=== PATIENT | female | born 1975 | race Caucasian/White ===

== ENCOUNTER 2019-07-14 09:26 | Emergency (ER) | payer OTHER, SELFPAY ==
--- NOTE | 2019-07-14 09:29 | DI.RAD.S_ITS ---
PROCEDURE: XR ACUTE ABDOMEN SERIES INDICATIONS: Abdominal pain TECHNIQUE: One view chest and two views of the abdomen were acquired. COMPARISON: None. FINDINGS: Surgical changes and devices: Intrauterine device is noted in place. Chest: Lungs are clear. Heart size is normal. No pleural effusions. No pneumoperitoneum. Abdomen: Fecal stasis throughout the colon is seen. No suspicious calcifications. Visualized solid organ contours appear normal. Bones: No suspicious bony lesions. IMPRESSION: No evidence of bowel obstruction. No gross free air. Mild constipation. No acute cardiopulmonary pathology. Dictated by: Michael Betts M.D. on 07/14/2019 at 9:59 Approved by: Michael Betts M.D. on 07/14/2019 at 9:59
[2019-07-14 09:30] VITALS: BP 156/101; PULSE 97; RESP 18; TEMP 36.9; O2SAT 100
--- NOTE | 2019-07-14 09:46 | ED.GENADULT ---
HPI - General Adult General Chief complaint: Diabetic Problem Stated complaint: Blood sugar of 462, nausea, stomach pain Time Seen by Provider: 07/14/19 09:28 Source: patient Mode of arrival: Ambulatory Limitations: no limitations History of Present Illness HPI narrative: 43-year-old female nonsmoker with newly diagnosed diabetes presents with continued elevated blood sugars, nausea and generalized abdominal discomfort. About 2 weeks ago she was treated for bronchitis and placed on steroids and in the aftermath had increasing thirst, hunger and frequent urination. As her symptoms worsened and she developed increasing nausea and abdominal discomfort she sought treatment at an outside facility and was diagnosed with diabetes. Additionally her sugars when the 600s but were down in the 400s before being discharged on a prescription of metformin 500 b.i.d.. She presents to us today with persistent symptoms complaining of blurred vision additionally. [place] is yet to follow up Onset (ago): week(s) Severity: moderate Associated symptoms: nausea/vomiting Treatments prior to arrival: none Related Data Allergies Allergy/AdvReac Type Severity Reaction Status Date / Time doxycycline Allergy Verified 07/14/19 10:28 Review of Systems Constitutional Constitutional: Denies chills, Reports fatigue, Denies fever(s), Denies frequent falls, Denies lethargy and Reports weakness Eyes Eyes: Reports change in vision, Denies eye discharge, Denies irritation and Denies loss of vision ENT Ears, Nose, Mouth, and Throat: Denies change in voice, Denies dizziness, Denies neck pain, Denies sore throat and Denies throat swelling Cardiovascular Cardiovascular: Denies chest pain, Denies irregular heart rhythm, Denies lightheadedness, Denies palpitations, Denies dyspnea, Denies dyspnea on exertion and Denies orthopnea Respiratory Respiratory: Denies cough, Denies dyspnea, Denies dyspnea on exertion and Denies wheezing Gastrointestinal Gastrointestinal: Reports abdominal pain, Denies change in bowel habits, Denies diarrhea, Reports nausea and Denies vomiting Genitourinary Genitourinary: Denies hematuria, Denies flank pain, Denies urinary incontinence and Denies urinary urgency Musculoskeletal Musculoskeletal: Denies back pain, Reports muscle weakness, Denies neck pain, Denies numbness and Denies tingling Integumentary/Breasts Skin/Breast: Denies pruritus, Denies erythema, Denies rash and Denies wounds Neurologic Neurologic: Denies behavioral changes, Denies confusion, Denies dizziness, Denies frequent falls, Denies loss of vision, Denies numbness, Denies tingling and Reports weakness Psychiatric Psychiatric: Denies anxiety, Denies behavioral changes, Denies confusion, Denies depression, Denies homicidal ideation and Denies suicidal ideation Endocrine Endocrine: Reports fatigue, Denies flushing and Denies palpitations Hematologic/Lymphatic Hematologic/Lymphatic: Denies easy bruising Allergic/Immunologic Allergic/Immunologic: Denies urticaria, Denies throat swelling and Denies wheezing Patient History Social History Smoking Status: Never smoker alcohol intake frequency: 0-2 drinks per day Substance Use Type: does not use Exam Narrative Exam Narrative: GENERAL: [43] year old patient appears stated age. Well-nourished, well-developed patient, in mild distress. HEAD: Atraumatic. Normocephalic. EYES: Pupils equal round and reactive. Extraocular motions intact. No scleral icterus. No injection or drainage. Pressures checked with Tonopen and OS 20, OD 18. VIsual acuity noted on nurses chart. When within 3 feet her vision is normal ENT: Nose without bleeding, purulent drainage. Throat without erythema, tonsillar hypertrophy or exudate. Airway patent. NECK: Trachea midline. Non tender CARDIOVASCULAR: Regular rate and rhythm without murmurs, gallops, or rubs. RESPIRATORY: Clear to auscultation. Breath sounds equal bilaterally. No wheezes, rales, or rhonchi. GASTROINTESTINAL: Abdomen soft, non-tender, nondistended. EXTREMITIES: No edema or joint tenderness. BACK: Nontender without deformity or crepitance. No flank tenderness. NEURO: AOx3. SKIN: No rash or erythema of visible areas Initial Vital Signs Initial Vital Signs: Vital Signs Temperature 98.5 F 07/14/19 09:30 Pulse Rate 97 H 07/14/19 09:30 Respiratory Rate 18 07/14/19 09:30 Blood Pressure 156/101 H 07/14/19 09:30 Pulse Oximetry 100 07/14/19 09:30 Course Orders Ordered: ED Orders 07/14/19 09:58 Venous Blood Gas Stat 07/14/19 10:00 Blood Culture Stat Complete Blood Count AUTO DIFF Stat Comprehensive Metabolic Panel Stat Ketones (Beta-Hydroxybutyrate) Stat Lactate (Lactic Acid) Stat Procalcitonin Stat 07/14/19 12:43 Basic Metabolic Panel Stat 07/14/19 14:16 CT head/brain wo con Stat Discontinued Medications Sodium Chloride (Normal Saline 0.9%) 1,000 mls @ 1,000 mls/hr IV BOLUS ONE Stop: 07/14/19 10:27 Last Infusion: 07/14/19 11:41 Dose: 0 mls/hr Documented by: Admin: 07/14/19 10:29 Dose: 1,000 mls/hr Documented by: BTONER Sodium Chloride (Normal Saline 0.9%) 1,000 mls @ 1,000 mls/hr IV BOLUS ONE Stop: 07/14/19 11:47 Last Infusion: 07/14/19 14:16 Dose: 0 mls/hr Documented by: Admin: 07/14/19 11:42 Dose: 1,000 mls/hr Documented by: BTONER Ondansetron HCl (Zofran) 4 mg IV NOW ONE Stop: 07/14/19 09:29 Last Admin: 07/14/19 10:29 Dose: 4 mg Documented by: BTONER Proparacaine HCl (Parcaine 0.5% Ophth Stacia) 1 drops EYE-BOTH NOW ONE Stop: 07/14/19 14:55 Last Admin: 07/14/19 15:10 Dose: 1 drop Documented by: BTONER Consultations Consultation #1: discussion with ophtho. Findings very consistent with lens abnormality secondary to increased blood sugar, will eventually need ophtho follow up, but no emergent follow up needed Vital Signs Vital signs: Vital Signs - 8 hr 07/14/19 12:00 07/14/19 13:00 07/14/19 15:00 Pulse Rate 69 67 72 Respiratory Rate 16 17 19 Blood Pressure [Right Arm] 109/68 114/73 115/64 Pulse Oximetry 100 100 98 Medical Decision Making Lab Data Result diagrams: 07/14/19 10:00 07/14/19 12:43 Labs: Lab Results 07/14/19 07/14/19 07/14/19 Range/Units 09:58 10:00 10:00 WBC 10.6 (4.5-11.0) X10^3/uL RBC 4.83 (4.0-5.2) X10^6/uL Hgb 14.0 (12.0-16.0) g/dL Hct 40.8 (36-46) % MCV 84.5 (80-100) fL MCH 28.9 (26-34) PG MCHC 34.2 (30-36) % RDW 12.9 (11.6-14.8) % Plt Count 307 (150-400) X10^3/uL Neut % (Auto) 52.2 (50-75) % Lymph % (Auto) 40.2 H (25-40) % [place] % (Auto) 5.6 (3-14) % Eos % (Auto) 1.0 L (2-4) % Baso % (Auto) 1.0 (0-2) % Neut # (Auto) 5500 (5704-6115) /uL Lymph # (Auto) 4300 (1639-1431) /uL [place] # (Auto) 600 (0-900) /uL Eos # (Auto) 100 (0-450) /uL Baso # (Auto) 100 (0-100) /uL VBG pH 7.41 (7.33-7.43) VBG pCO2 38.6 L (45-50) mmHg VBG pO2 40 (35-45) mmHg VBG HCO3 24 (23-28) mmol/L VBG Total CO2 25 (24-29) mmol/L VBG O2 Saturation 76 H (70-75) % VBG Base Excess -1.0 L (0-4) mmol/L Sodium (137-145) mmol/L Potassium (3.4-5.1) mmol/L Chloride (98-107) mmol/L Carbon Dioxide (22-32) mmol/L BUN (7-17) mg/dL Creatinine (0.52-1.04) mg/dL Estimated GFR (>60) mL/min BUN/Creatinine Ratio (6-22) Glucose (70-100) mg/dL Lactate (0.7-2.1) mmol/L Calcium (8.4-10.2) mg/dL Total Bilirubin (0.2-1.3) mg/dL AST (14-36) IU/L ALT (<35) IU/L Alkaline Phosphatase (38-126) U/L Total Protein (6.3-8.2) g/dL Albumin (3.5-5.0) g/dL Globulin (1.7-4.1) g/dL Albumin/Globulin Ratio (1.0-2.8) Procalcitonin < 0.05 (<0.5) ng/mL Ketones (<0.27) mmol/L 07/14/19 07/14/19 07/14/19 Range/Units 10:00 10:00 12:43 WBC (4.5-11.0) X10^3/uL RBC (4.0-5.2) X10^6/uL Hgb (12.0-16.0) g/dL Hct (36-46) % MCV (80-100) fL MCH (26-34) PG MCHC (30-36) % RDW (11.6-14.8) % Plt Count (150-400) X10^3/uL Neut % (Auto) (50-75) % Lymph % (Auto) (25-40) % [place] % (Auto) (3-14) % Eos % (Auto) (2-4) % Baso % (Auto) (0-2) % Neut # (Auto) (5834-8062) /uL Lymph # (Auto) (9315-7539) /uL [place] # (Auto) (0-900) /uL Eos # (Auto) (0-450) /uL Baso # (Auto) (0-100) /uL VBG pH (7.33-7.43) VBG pCO2 (45-50) mmHg VBG pO2 (35-45) mmHg VBG HCO3 (23-28) mmol/L VBG Total CO2 (24-29) mmol/L VBG O2 Saturation (70-75) % VBG Base Excess (0-4) mmol/L Sodium 133 L 132 L (137-145) mmol/L Potassium 3.6 3.9 (3.4-5.1) mmol/L Chloride 95 L 99 (98-107) mmol/L Carbon Dioxide 23 24 (22-32) mmol/L BUN 21 H 18 H (7-17) mg/dL Creatinine 0.71 0.59 (0.52-1.04) mg/dL Estimated GFR > 60.0 > 60.0 (>60) mL/min BUN/Creatinine Ratio 29.6 H 30.5 H (6-22) Glucose 367 H 309 H (70-100) mg/dL Lactate 1.1 (0.7-2.1) mmol/L Calcium 9.1 8.1 L (8.4-10.2) mg/dL Total Bilirubin 0.8 (0.2-1.3) mg/dL AST 36 (14-36) IU/L ALT 41 H (<35) IU/L Alkaline Phosphatase 143 H (38-126) U/L Total Protein 7.8 (6.3-8.2) g/dL Albumin 4.4 (3.5-5.0) g/dL Globulin 3.4 (1.7-4.1) g/dL Albumin/Globulin Ratio 1.3 (1.0-2.8) Procalcitonin (<0.5) ng/mL Ketones 1.69 H (<0.27) mmol/L Point of Care Testing Glucose POC 298 Urine Dip Bedside Urine Glucose 1000 mg/dl Bedside Urine Bilirubin - Negative Bedside Urine Ketone +++ 80 Urine Specific [place] 1.020 Bedside Urine Occult Blood + Bedside Urine pH 6.0 Bedside Urine Protein +/- 15 Bedside Urine Urobilinogen +/- 1mg Bedside Urine Nitrite - Negative Bedside Urine Leukocytes - Negative Esterase Point of care testing: Point of Care Testing Glucose POC 298 Urine Dip Bedside Urine Glucose 1000 mg/dl Bedside Urine Bilirubin - Negative Bedside Urine Ketone +++ 80 Urine Specific [place] 1.020 Bedside Urine Occult Blood + Bedside Urine pH 6.0 Bedside Urine Protein +/- 15 Bedside Urine Urobilinogen +/- 1mg Bedside Urine Nitrite - Negative Bedside Urine Leukocytes - Negative Esterase Imaging Data CT scan - head: Radiologist's Impression: [place] [address] CT Scan Report Signed Patient: Rina Guardado RMR#: [id number] : 1975Acct:[id number] Age/Sex: 43 / FDate of Service: 07/14/19 Loc: ED Accession Number: [id number] Procedure: CT head/brain wo con Ordering Provider: Velasquez Corona D.O. PROCEDURE: CT HEAD/BRAIN WO CON INDICATIONS: vision change x4 days TECHNIQUE: Noncontrast 4.5 mm thick angled axial sections acquired from the foramen magnum to the vertex, with coronal and sagittal reformats. For radiation dose reduction, the following was used: automated exposure control, adjustment of mA and/or kV according to patient size. COMPARISON: None. FINDINGS: Image quality: Excellent. CSF spaces: Basal cisterns are patent. No extra-axial fluid collections. Ventricles are normal in size and shape. Brain: No midline shift. No intracranial masses or hemorrhage. Kaminski-white matter interface is normal. Skull and face: Calvarium and visualized facial bones are intact, without suspicious lesions. Sinuses: Visualized sinuses and mastoids are clear. IMPRESSION: Normal noncontrast head CT. If it would be helpful for clinical management decision making, please consider a dedicated brain MRI for further evaluation (assuming that there is no contraindication). Dictated by: Cheng Vaughn M.D. on 07/14/2019 at 13:44 Approved by: Cheng Vaughn M.D. 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 Diabetes mellitus complication status: with ophthalmic complications Diabetes mellitus complication detail: with other ophthalmic complication Qualified Code(s): E11.39 - Type 2 diabetes mellitus with other diabetic ophthalmic complication Discharge Date/Time: 07/14/19 15:35 Instructions: DI for Diabetes Type 1 -- Child Activity Restrictions/Additional Instructions: *You have been diagnosed with [type 2 diabetes and temporary ophthalmologic complications] *What to do: *Take medications as directed: Please take an extra Metformin as part of your morning dose (1000mg) *Follow up with your primary care provider in 2-3 days, call for an appointment. Let them know you were seen in the Emergency Department and that we ask that you be seen in follow up *Return to ER if you should have any new, worsening or concerning symptoms Referrals: Kal Espinoza MD [Physician] - Miscellaneous,MD Marvin [Primary Care Provider] - Stand Alone Forms: Work Release Note
[2019-07-14 10:14] LABS: Add Manual Diff / Slide Review NO; Basophils Absolute Auto 100 /uL (0-100); Eosinophils Absolute Auto 100 /uL (0-450); Hematocrit 40.8 % (36-46); Lymphocytes Absolute Auto 4300 /uL (1100-4500); Lymphocytes Percent Auto 40.2 % (25-40); Mean Corpuscular HGB Conc 34.2 % (30-36); Mean Corpuscular Hemoglobin 28.9 PG (26-34); Mean Corpuscular Volume 84.5 fL (80-100); Monocytes Absolute Auto 600 /uL (0-900); Monocytes Percent Auto 5.6 % (3-14); Neutrophils Absolute Auto 5500 /uL (1500-7000); Neutrophils Percent Auto 52.2 % (50-75); Platelet Count 307 X10^3/uL (150-400); Red Blood Cell Count 4.83 X10^6/uL (4.0-5.2); Red Cell Distribution Width 12.9 % (11.6-14.8); White Blood Cell Count 10.6 X10^3/uL (4.5-11.0)
[2019-07-14 10:14] LABS: HCO3 VBG 24 mmol/L (23-28); Oxygen Saturation VBG 76 % (70-75); PCO2 VBG 38.6 mmHg (45-50); PO2 VBG 40 mmHg (35-45); Total CO2 VBG 25 mmol/L (24-29); pH VBG 7.41 (7.33-7.43)
[2019-07-14 10:28] LABS: Alanine Aminotransferase 41 IU/L (<35); Albumin 4.4 g/dL (3.5-5.0); Albumin Globulin Ratio 1.3 (1.0-2.8); Alkaline Phosphatase 143 U/L (38-126); Aspartate Aminotransferase 36 IU/L (14-36); BUN Creatinine Ratio 29.6 (6-22); Bilirubin Total 0.8 mg/dL (0.2-1.3); Blood Urea Nitrogen 21 mg/dL (7-17); Calcium 9.1 mg/dL (8.4-10.2); Carbon Dioxide 23 mmol/L (22-32); Chloride 95 mmol/L (98-107); Estimated Glomerular Filt Rate > 60.0 mL/min (>60); Globulin 3.4 g/dL (1.7-4.1); Glucose 367 mg/dL (70-100); Potassium 3.6 mmol/L (3.4-5.1); Sodium 133 mmol/L (137-145); Total Protein 7.8 g/dL (6.3-8.2)
[2019-07-14] MEDS: SODIUM CHLORIDE 0.9% 1,000 ML 1000 ML IV ×2 (10:29→11:42)
[2019-07-14] MEDS: ONDANSETRON 4 MG/2 ML INJ IV (10:29)
[2019-07-14 10:36] LABS: HEMOLYSIS 18 (0-50); Ketones (Beta-Hydroxybutyrate) 1.69 mmol/L (<0.27)
[2019-07-14 10:37] LABS: Lactate (Lactic Acid) 1.1 mmol/L (0.7-2.1)
[2019-07-14 10:51] LABS: Procalcitonin < 0.05 ng/mL (<0.5)
--- NOTE | 2019-07-14 11:42 | PC.NURSE ---
pt states nausea is better, but vision is still blurry.
[2019-07-14 12:00] VITALS: BP 109/68; PULSE 69; RESP 16; O2SAT 100
[2019-07-14 13:00] VITALS: BP 114/73; PULSE 67; RESP 17; O2SAT 100
[2019-07-14 13:01] LABS: BUN Creatinine Ratio 30.5 (6-22); Blood Urea Nitrogen 18 mg/dL (7-17); Calcium 8.1 mg/dL (8.4-10.2); Carbon Dioxide 24 mmol/L (22-32); Chloride 99 mmol/L (98-107); Estimated Glomerular Filt Rate > 60.0 mL/min (>60); Glucose 309 mg/dL (70-100); HEMOLYSIS < 15 (0-50); Potassium 3.9 mmol/L (3.4-5.1); Sodium 132 mmol/L (137-145)
--- NOTE | 2019-07-14 14:16 | DI.CT.S_ITS ---
PROCEDURE: CT HEAD/BRAIN WO CON INDICATIONS: vision change x4 days TECHNIQUE: Noncontrast 4.5 mm thick angled axial sections acquired from the foramen magnum to the vertex, with coronal and sagittal reformats. For radiation dose reduction, the following was used: automated exposure control, adjustment of mA and/or kV according to patient size. COMPARISON: None. FINDINGS: Image quality: Excellent. CSF spaces: Basal cisterns are patent. No extra-axial fluid collections. Ventricles are normal in size and shape. Brain: No midline shift. No intracranial masses or hemorrhage. Kaminski-white matter interface is normal. Skull and face: Calvarium and visualized facial bones are intact, without suspicious lesions. Sinuses: Visualized sinuses and mastoids are clear. IMPRESSION: Normal noncontrast head CT. If it would be helpful for clinical management decision making, please consider a dedicated brain MRI for further evaluation (assuming that there is no contraindication). Dictated by: Cheng Vaughn M.D. on 07/14/2019 at 13:44 Approved by: Cheng Vaughn M.D. on 07/14/2019 at 13:45
[2019-07-14 15:00] VITALS: BP 115/64; PULSE 72; RESP 19; O2SAT 98
[2019-07-14] MEDS: PROPARACAINE 0.5% OPHTH SOL 1 DROPS EYE-BOTH (15:10)
== END 2019-07-14 15:35 | disposition home or self-care (01) ==
PROVIDERS: Emergency Provider Emergency Medicine
DX: E11.39 Type 2 diabetes mellitus with other diabetic ophthalmic complication (principal); E11.65 Type 2 diabetes mellitus with hyperglycemia; R11.2 Nausea with vomiting, unspecified; R10.9 Unspecified abdominal pain
CPT/HCPCS: 36415; 70450; 74022; 80048; 80053; 81003; 82009; 82805; 82962; 83605; 84145; 85025; 87040; 93005; 93010; 96361; 96374; 99284; 99285; J2405

== ENCOUNTER → 2019-08-07 09:47 | Outpatient (CLI) | payer OTHER, SELFPAY ==
[2019-08-08 10:09] LABS: COVID19 Sendout Not Detected (Not Detected)
== END ==
PROVIDERS: Visit Provider Physician Assistant
DX: Z03.818 Encounter for observation for suspected exposure to other biological agents ruled out (principal)
CPT/HCPCS: 87635

== ENCOUNTER 2020-09-19 11:44 | Emergency (ER) | payer OTHER, SELFPAY ==
[2020-09-19 11:50] VITALS: BP 127/86; PULSE 85; RESP 18; TEMP 36.5; O2SAT 100; BMI 36.6
[2020-09-19 12:24] LABS: COVID19 -Nasal RAPID POSITIVE (Negative)
[2020-09-19 12:49] VITALS: PULSE 85; RESP 20; O2SAT 96
--- NOTE | 2020-09-19 12:56 | ED.URI ---
HPI - URI/Sore Throat General Chief Complaint: Upper Respiratory Symptoms Stated Complaint: Sore Throat/Cough,No Taste or Smell, Possible Expo Time Seen by Provider: 09/19/20 12:49 Source: patient Mode of arrival: Ambulatory Limitations: no limitations History of Present Illness HPI Narrative: Patient is a 44-year-old female with no past medical history presenting today with 5 days of generalized weakness fever and jaw exhaustion. She has also had cough and sore throat. She did receive her COVID vaccine [employer] in June of 2020. Her test came back and she is COVID positive. Related Data Allergies Allergy/AdvReac Type Severity Reaction Status Date / Time doxycycline Allergy Verified 08/07/19 09:45 Review of Systems Review of Systems ROS Unobtainable: All systems reviewed & are unremarkable except as noted in HPI and below Constitutional Constitutional: Reports as per HPI, Reports anorexia, Reports fatigue, Reports fever(s) and Reports poor appetite Respiratory Respiratory: Reports as per HPI, Denies change in phlegm color, Denies chest congestion and Reports cough Gastrointestinal Gastrointestinal: Denies abdominal pain, Denies nausea and Denies vomiting Musculoskeletal Musculoskeletal: Denies back pain Endocrine Endocrine: Reports fatigue Patient History Social History Smoking Status: Never smoker Smoking Status: Never smoker alcohol intake frequency: 0-2 drinks per day Substance Use Type: does not use Exam Initial Vital Signs Initial Vital Signs: Vital Signs Temperature 97.7 F 09/19/20 11:50 Pulse Rate 85 09/19/20 11:50 Respiratory Rate 18 09/19/20 11:50 Blood Pressure 127/86 09/19/20 11:50 Pulse Oximetry 100 09/19/20 11:50 GENERAL: Alert well-appearing 44-year-old female and in no acute distress. HEENT: Head atraumatic,EOMI, pupils reactive, face symmetric, moist mucous membranes CARDIOVASCULAR: Regular rate and rhythm without murmurs, rubs or gallops. RESPIRATORY: Breath sounds equal bilaterally, no wheezes rales or rhonchi. ABDOMEN: Soft, nontender. Normoactive bowel sounds all 4 quadrants. No guarding or rebound. EXTREMITIES: Normal range of motion, no clubbing or edema. Neurovascularly intact NEUROLOGICAL: Alert and oriented x4.Normal gait and speech. SKIN: Warm, dry, no laceration, no petechiae, no rashes or lesions. Course Orders Ordered: ED Orders 09/19/20 11:55 COVID19 -Nasal swab/Pre-Proc Stat Vital Signs Vital signs: Vital Signs - 8 hr 09/19/20 12:49 Pulse Rate 85 Respiratory Rate 20 Pulse Oximetry 96 MDM - URI/Sore Throat Lab Data Labs: Lab Results 09/19/20 Range/Units 11:55 SARS-CoV-2 (PCR) Positive H (Negative) MDM Narrative Medical decision making narrative: Patient's oxygen is 96% on room air. Discussed with her quarantine, and home care and when to return to ED. Discharge Plan Departure Patient Disposition: Home Clinical Impression: COVID-19 Instructions: DI for COVID-19 (Suspected or Confirmed ) Activity Restrictions/Additional Instructions: * diagnosis: COVID-19 * if you have not yet been vaccinated is still recommended and encouraged that you do so once your infection has passed At home: -Monitor oxygen with home pulse oximeter. -Wash hands frequently. -Stay isolated at home please follow the isolation instructions below. -Increase fluid intake. -you may take Tylenol as directed if needed for pain or fever Emergency warning signs for COVID-19: - Difficulty breathing or shortness of breath, oxygen less than 90% - Persistent pain or pressure in the chest - New confusion or inability to arouse - Bluish lips or face CDC Guidelines for home isolation: - Stay away from others - Limit contact with pets and animals: If you must care for a pet, wash your hands before and after interacting with them - Wear a mask while in public all places - Cover your mouth and nose with a tissue when you cough or sneeze. Dispose of tissues in a lined trash can and wash your hands immediately with soap and water for at least 20 seconds. If soap and water are not available, clean hands with alcohol-based hand recycling or rubbish collector that contains at least 60% alcohol. - Clean your hands often with soap and water for at least 20 seconds - Avoid touching your eyes, nose and mouth with unwashed hands - Do not share dishes, drinking glasses, cups, eating utensils, towels, or bedding with other people in your home. After using these items, wash them thoroughly with soap and water or put in the account services analyst. - Clean high-touch surfaces in your isolation area (?sick room? and bathroom) every day; let a caregiver clean and disinfect high-touch surfaces in other areas of the home. Clean the area or item with soap and water or another detergent if it is dirty. Then, use a household disinfectant. Referrals: Miscellaneous,DoctorMD [Primary Care Provider] -
== END 2020-09-19 12:49 | disposition home or self-care (01) ==
PROVIDERS: Emergency Provider Emergency Medicine
DX: U07.1 COVID-19 (principal); R05 Cough; J02.9 Acute pharyngitis, unspecified
CPT/HCPCS: 87635; 99281; 99282; C9803

== ENCOUNTER 2023-03-18 10:18 | Emergency (ER) | payer OTHER, SELFPAY ==
[2023-03-18 10:23] VITALS: BP 119/66; PULSE 80; RESP 18; TEMP 36.7; O2SAT 99; BMI 25.0
[2023-03-18 10:33] VITALS: PULSE 74; O2SAT 100
[2023-03-18 10:34] VITALS: BP 122/73; PULSE 78; O2SAT 100
[2023-03-18 10:36] VITALS: PULSE 82
--- NOTE | 2023-03-18 10:43 | ED.EXTPRO ---
HPI - Extremity Problem General Chief complaint: Extremity Problem,Nontraumatic Stated complaint: neck/arm pain w/decreased ROM/ fingers numb Time Seen by Provider: 03/18/23 10:34 Source: patient Mode of arrival: Ambulatory History of Present Illness HPI Narrative: Patient is a 47-year-old female who has had neck discomfort for some time. She was gone to the chiropractor. Had x-rays. Was told that she has degenerative disc disease. Did have a ?minor? adjustment. She is now having tingling in her right hand to her index finger and ring finger and some of her thumb. She has a follow-up appointment with her primary doctor scheduled in 4 days. She denies any trauma. Did have some old Flexeril at home which she took without any improvement. Does take Tylenol and ibuprofen as needed with only minimal relief. Related Data Previous Rx's Medication Instructions Recorded cyclobenzaprine 10 mg tablet 10 mg PO TID PRN muscle spasm #21 03/18/23 tabs prednisone 20 mg tablet 20 mg PO DAILY 7 days #7 tabs 03/18/23 Allergies Allergy/AdvReac Type Severity Reaction Status Date / Time doxycycline Allergy Verified 08/07/19 09:45 Review of Systems ENT Ears, Nose, Mouth, and Throat: Reports system reviewed and no additional complaints, except as documented Musculoskeletal Musculoskeletal: Reports system reviewed and no additional complaints, except as documented Integumentary/Breasts Skin/Breast: Reports system reviewed and no additional complaints, except as documented Neurologic Neurologic: Reports system reviewed and no additional complaints, except as documented Patient History Social History Smoking Status: Never smoker Smoking Status: Never smoker alcohol intake frequency: 0-2 drinks per day Substance Use Type: does not use Exam Initial Vital Signs Initial Vital Signs: Vital Signs Temperature 98.0 F 03/18/23 10:23 Pulse Rate 80 03/18/23 10:23 Respiratory Rate 18 03/18/23 10:23 Blood Pressure 119/66 03/18/23 10:23 Pulse Oximetry 99 03/18/23 10:23 Oxygen Delivery Method Room Air 03/18/23 10:23 Back/Spine/Pelvis Other: Tenderness to palpation in the right paraspinal region. Skin General: no rashes or lesions noted Neuro General: patient alert, patient awake and moves all extremities Other: Tingling to light touch to the index finger and ring finger. Extrem Other: No gross deformities. Course Orders Ordered: Discontinued Medications Lidocaine HCl (Lidocaine 2% Inj Sdv 5ml) 5 ml INJ INTRA-OP ONE Stop: 03/18/23 10:44 Last Admin: 03/18/23 10:51 Dose: 5 ml Documented By: COREY Vital Signs Vital signs: Vital Signs - 8 hr 03/18/23 10:23 03/18/23 10:33 03/18/23 10:34 Temperature 98.0 F Pulse Rate 80 74 78 Pulse Rate [Right Apical] Respiratory Rate 18 Blood Pressure 119/66 Pulse Oximetry 99 100 100 Oxygen Delivery Method Room Air 03/18/23 10:34 03/18/23 10:36 Temperature Pulse Rate Pulse Rate [Right Apical] 82 Respiratory Rate Blood Pressure 122/73 Pulse Oximetry Oxygen Delivery Method MDM - Extremity (Nontraumatic) MDM Narrative Medical decision making narrative: Patient did have a relatively localized area and her right paraspinal region for which I did a trigger point injection with 2 cc of 2% lidocaine. Patient tolerated the procedure well. No indication for radiologic studies today she has not had any trauma and she is also already had cervical spine x-rays. We will place her on steroids for the next couple days because of the radiculopathy. Recommended muscle relaxers. She has an appointment in 4 days with her primary doctor. Recommended follow-up with Orthopedics. She was given return precautions. She expressed understanding and agreement. Discharge Plan Departure Patient Disposition: Home Clinical Impression: Cervical radiculopathy Instructions: DI for Neck Pain Activity Restrictions/Additional Instructions: You can continue with conservative measures such as heat/ice/massage and light stretching. You can continue with Tylenol. While you are on the steroids (prednisone) recommend that you do not take Motrin/ibuprofen/Naprosyn. Use the muscle relaxers as needed. Keep your scheduled appointment with your primary doctor. Return to the emergency department for new symptoms Prescriptions: New cyclobenzaprine 10 mg tablet 10 mg PO TID PRN (Reason: muscle spasm) Qty: 21 0RF prednisone 20 mg tablet 20 mg PO DAILY 7 Days Qty: 7 0RF Referrals: Annetta Kendall ARNP [Primary Care Provider] - Ruddy Cheng MD [Physician] - Stand Alone Forms: Patient Portal/API
[2023-03-18] MEDS: LIDOCAINE 2% INJ SDV 5ML 5 ML INJ (10:51)
[2023-03-18 11:10] VITALS: BP 112/69; PULSE 70; RESP 12; O2SAT 100
== END 2023-03-18 11:11 | disposition home or self-care (01) ==
PROVIDERS: Emergency Provider Emergency Medicine; PCP Nurse Practitioner Family
DX: M54.12 Radiculopathy, cervical region (principal)
CPT/HCPCS: 99283

== ENCOUNTER 2023-07-31 11:47 | Day surgery (SDC) | payer OTHER, SELFPAY ==
[2023-07-26 10:48] VITALS: BMI 25.9
--- NOTE | 2023-07-31 | PATH_ITS ---
[facility] Accession Number: [id number] No. of containers..01 Tissue . 01 Material submitted: . abdomen - LEFT ABDOMINAL WALL LIPOMA . 01 Diagnosis: LEFT ABDOMINAL WALL, EXCISION: Mature adipose tissue consistent with lipoma. [facility] 08/06/2023 1129 Local . 01 Electronically signed: . Rody Quigley MD, Dermatopathologist NPI- [id number] . 01 Gross description: . Received in formalin labeled with two patient identifiers and designated left abdominal wall lipoma, and consists of a 5.2 x 4.2 x 2.2 cm partially encapsulated yellow lobulated mass which is inked blue and serially sectioned to show a yellow homogeneous lobulated cut surface. Also received in the same container is a 1.5 x 1.0 x 0.4 cm encapsulated yellow adipose tissue which is inked orange and serially sectioned to show an unremarkable yellow lobulated cut surface. Behavioral Health Assistant sections are submitted: . A1-A2: Larger blue inked fatty mass (four pieces in each cassette). A3: Smaller orange inked fatty mass (three pieces). ([id number]) /MRV 08/01/20231944 Local . 01 Pathologist provided ICD-10: D17.9 . 01 CPT . 276422 Specimen Comment: A courtesy copy of this report has been sent to [phone] Performed at: [address] [id number] MD Abiodun Box MD Phone: [phone]
[2023-07-31 12:16] VITALS: BP 112/75; PULSE 75; RESP 16; TEMP 36.7; O2SAT 98; BMI 26.1
[2023-07-31] MEDS: LACTATED RINGERS 1,000 ML 42 ML IV (12:38)
[2023-07-31] MEDS: ACETAMINOPHEN 325 MG TABLET 975 MG PO (12:47)
--- NOTE | 2023-07-31 12:55 | P.HP_ITS ---
History of Present Illness History of Present Illness Date Patient Seen: 07/31/23 Time Patient Seen: 12:55 Chief complaint: Excisional bx left adb wall mass Narrative: Rina is a 47-year-old woman with a left abdominal wall soft tissue mass. See prior office note for details. [facility] Medical History (Updated 06/25/23 @ 08:31 by Karen Brasher RN) Hypertension Surgical History (Updated 06/25/23 @ 08:31 by Karen Brasher RN) Hx of section Social History household members: spouse Smoking Status: Never smoker alcohol intake: current Meds Home Medications and Allergies Home Medications Medication Instructions Recorded Confirmed Type bupropion HCl 300 mg 24 hr tablet, 300 mg PO QAM 06/25/23 07/31/23 History extended release (Wellbutrin XL) hydrochlorothiazide 25 mg tablet 25 mg PO DAILY 06/25/23 07/31/23 History hydroxyzine HCl 25 mg tablet 25 mg PO ONCE 06/25/23 07/31/23 History lisinopril 10 mg tablet 10 mg PO DAILY 06/25/23 07/31/23 History Allergies Allergy/AdvReac Type Severity Reaction Status Date / Time doxycycline Allergy Hives Verified 07/31/23 12:13 Exam Vital Signs (past 8 hours): - 07/31/23 12:16 Temperature 98.1 F Pulse Rate 75 Respiratory Rate 16 Blood Pressure 112/75 Pulse Oximetry 98 Oxygen Delivery Method Room Air Oxygen Delivery Method Room Air Narrative Exam Narrative: There is a 5 x 7 cm soft mobile mass of the left abdominal wall just inferior to the left costal margin Assessment & Plan Assessment and plan (1) Abdominal lipoma: Status: Acute Plan We will plan for excisional biopsy in the operating room.
--- NOTE | 2023-07-31 13:19 | SUR.OPER ---
Supine on padded OR bed, head on pillow, arms secured on padded arm boards at <90 degrees abduction, legs uncrossed, safety belt at thigh, tape over blanket over lower legs.
[2023-07-31] MEDS: BUPIVACAINE 0.5% W/ EPI (PF) 10 ML VIAL 20 ML INJ (13:30)
[2023-07-31 13:42] VITALS: BP 115/71; PULSE 70; RESP 15; TEMP 36.6; O2SAT 99
[2023-07-31 13:47] VITALS: BP 118/74; PULSE 69; RESP 12; TEMP 36.5; O2SAT 100
[2023-07-31 13:52] VITALS: BP 118/73; PULSE 71; RESP 13; TEMP 36.5; O2SAT 100
[2023-07-31 13:57] VITALS: BP 117/73; PULSE 69; RESP 14; TEMP 36.4; O2SAT 99
--- NOTE | 2023-08-30 16:39 | P.OP_ITS ---
Operative Date/Time/Diagnoses Date of procedure: 07/31/23 Pre-op diagnosis: Left abdominal wall soft tissue mass Post-op diagnosis: same Procedure & Clinicians Procedure: Excisional biopsy of left abdominal wall soft tissue mass Same procedure as scheduled: Yes Surgeon: Jesus Alberto Choudhury Billet Straightener: Yair Quintanilla Anesthesia Type: Sedation Operative Notes Procedure in detail: The patient was brought to the operating room and placed on the table in the supine position. Sedation was administered. A bump was placed under the left shoulder and the left abdomen and flank was prepped and draped in the usual fashion. A 9 cm incision was created over the subcutaneous mass. Dissection was carried down to the mass which appeared to be a lipoma. The lipoma was dissected free from the surrounding subcutaneous adipose tissue. Additional local was injected into the deep tissue. The wound was irrigated with sterile saline. The wound was then closed in layers using multiple interrupted 3-0 Vicryl dermal sutures followed by a running 4-0 Monocryl subcuticular closure. Sterile dressings were applied. EBL: 10 mL Specimen: Lipoma Yair JEFFERY provided assistance with exposure, retraction and closure of incisions. Post-operative Condition: stable Disposition: PACU
== END 2023-07-31 14:13 | disposition home or self-care (01) ==
PROVIDERS: PCP Nurse Practitioner Family; Referring Provider Surgery; Visit Provider Surgery
PROC: (CPT 22903; principal; 2023-07-31 13:15)
DX: D17.1 Benign lipomatous neoplasm of skin and subcutaneous tissue of trunk (principal)
CPT/HCPCS: 22903; J1100; J2405; J2704; J3010

== ENCOUNTER 2024-10-23 12:00 | Day surgery (SDC) | payer OTHER, SELFPAY ==
[2024-10-23 12:29] VITALS: BP 128/79; PULSE 70; RESP 16; TEMP 36.9; O2SAT 99
[2024-10-23] MEDS: LACTATED RINGERS 1,000 ML 42 ML IV (12:37)
--- NOTE | 2024-10-23 13:01 | PM.HP.IH.1 ---
History of Present Illness History of Present Illness Date Patient Seen: 10/23/24 Time Patient Seen: 13:02 Chief complaint: Screening Colonoscopy Narrative: Rina is a 48-year-old woman who presents for a colonoscopy, her first. No known family history of colon cancer. [facility] Medical History (Updated 10/23/24 @ 13:02 by Jesus Alberto Choudhury MD) Hypertension Surgical History (Updated 06/25/23 @ 08:31 by Karen Brasher RN) Hx of section Social History household members: spouse Smoking Status: Never smoker alcohol intake: current Meds Home Medications and Allergies Home Medications ?Medication ?Instructions ?Recorded ?Confirmed ?Type bupropion HCl 300 mg 24 hr tablet, 300 mg PO QAM 06/25/23 10/23/24 History extended release (Wellbutrin XL) hydrochlorothiazide 25 mg tablet 25 mg PO DAILY 06/25/23 10/23/24 History hydroxyzine HCl 25 mg tablet 25 mg PO ONCE 06/25/23 10/23/24 History sodium,potassium,mag sulfates 17.5 See Rx Instructions PO .COMPLEX 09/09/24 10/23/24 Rx gram-3.13 gram-1.6 gram oral soln #354 mL (Suprep Bowel Prep Kit) Allergies Allergy/AdvReac Type Severity Reaction Status Date / Time doxycycline Allergy Hives Verified 07/31/23 12:13 Exam Vital Signs (past 8 hours): - 10/23/24 12:29 Temperature 98.5 F Pulse Rate 70 Respiratory Rate 16 Blood Pressure 128/79 Pulse Oximetry 99 Oxygen Delivery Method Room Air Oxygen Delivery Method Room Air Const General: No acute distress Assessment & Plan Assessment and plan (1) Colon cancer screening: Status: Acute Plan Colonoscopy Time-Based Coding :: [TOTAL MINUTES] spent with patient and on the chart (including review of chart, obtaining history, exam, reviewing outside data, placing orders, documenting exam and treatment plan, and counseling patient) on [DATE]. [employer] Cashier Manager Document charge(s): No
[2024-10-23 13:32] VITALS: BP 108/65; PULSE 65; RESP 15; TEMP 36.3; O2SAT 98
[2024-10-23 13:35] VITALS: BP 111/67; PULSE 60; RESP 16; TEMP 36.3; O2SAT 99
--- NOTE | 2024-10-23 13:36 | PM.OP.COLON ---
Operative Date/Time/Diagnoses Date of procedure: 10/23/24 Time of procedure: 13:36 Pre-op diagnosis: Colon cancer screening Post-op diagnosis: same Procedure & Clinicians Study performed: Colonoscopy Same procedure(s) as scheduled: Yes Surgeon: Jesus Alberto Choudhury Anesthesia Type: MAC +/- Procedure Notes Procedure in detail: Surgeon: Jesus Alberto Choudhury MD Anesthesia: Tarah Roberta ASSEMBLY INSPECTOR HELPER Procedure: The patient was brought to the endoscopy suite, placed in left lateral decubitus position. The patient was connected to monitoring devices. A time-out was performed. Sedation was administered. Once the patient was adequately sedated, a digital rectal exam was performed and was normal. The scope was then inserted and advanced to the cecum where the appendiceal orifice was identified and photographed. The scope was then slowly withdrawn over greater than 6 minutes. The mucosa was thoroughly inspected. No polyps or other abnormalities were found. The scope was retroflexed in the rectum. The scope was straightened and removed. The patient was awakened and brought to recovery. Scope withdrawal time: 6 minutes Sedation time: 13 minutes EBL: 0 Findings: Normal colon Post-procedure Recommendations: Colonoscopy in 10 years Disposition: PACU
[2024-10-23 13:40] VITALS: BP 118/73; PULSE 68; RESP 16; TEMP 36.3; O2SAT 100
[2024-10-23 13:57] VITALS: BP 138/71; PULSE 63; RESP 16; TEMP 36.3; O2SAT 99
== END 2024-10-23 14:01 | disposition home or self-care (01) ==
PROVIDERS: PCP Nurse Practitioner Family; Referring Provider Surgery; Visit Provider Surgery
PROC: 0DJD8ZZ Inspection of Lower Intestinal Tract, Via Natural or Artificial Opening Endoscopic (ICD-10-PCS; CPT 45378; principal; 2024-10-23 13:15)
DX: Z12.11 Encounter for screening for malignant neoplasm of colon (principal)
CPT/HCPCS: 45378; J2704